=== PATIENT | male | born 1985 | race Caucasian/White ===

== ENCOUNTER 2018-06-10 03:27 | Emergency (ER) | payer SELFPAY ==
--- NOTE | 2018-06-11 09:51 | CR ---
EXAM DATE: 06/10/18 PATIENT'S AGE: 32 Patient: TATUM OLSON Facility: [place], [place] : 1985 Study: XRay Extremity Left 3rd digit-06/10/2018 3:55:45 AM Ordering Physician: mitch Final Report: Indication: Possible foreign body Technique: Left hand 2 views. Comparison: None Findings: Bones: Alignment is normal. No fractures or bone lesions. Joint spaces: Unremarkable. Soft tissues: Unremarkable. Impression: No radiopaque foreign body seen. Dictated by Reyes Gomez MD @ Jun 10 2018 3:59AM (Electronic Signature) Report Signed by Proxy. [facility]
== END 2018-06-10 04:33 | disposition home or self-care (01) ==
LOC: MW.ED 03:27 → EEVIPCON 03:27 → MW.ED 04:33
DX: L03.012 Cellulitis of left finger (principal)
CPT/HCPCS: 73140-26-F2; 73140-F2; 87070; 87077; 87186; 99283-25